=== PATIENT | male | born 1985 | race African-American/Black ===

== ENCOUNTER 2020-04-07 15:15 | Emergency (ER) | payer SELFPAY ==
[2020-04-07] MEDS ORDERED: AMOXICILLIN TR/POT CLAVULANATE 875-125 MG TAB PO ONE (15:53)
[2020-04-07] MEDS ORDERED: DIPH/PERTUSS(ACELL)/TETANUS VAC/PF 0.5 ML SYR (>=10YO) IM ONE (15:53)
[2020-04-07] MEDS ORDERED: IBUPROFEN 800 MG TABLET PO ONE (15:53)
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
--- NOTE | 2020-04-07 16:20 | RADIOLOGY REPORT (SQ) ---
EXAM DESCRIPTION: FINGER LEFT IMAGES COMPLETED DATE/TIME: 04/07/2020 4:07 pm REASON FOR STUDY: Probable open fracture of left index finger COMPARISON: None. NUMBER OF VIEWS: Three views. TECHNIQUE: AP, lateral, and oblique images acquired of the left second finger. LIMITATIONS: None. FINDINGS: MINERALIZATION: Normal. BONES: On the AP and oblique views there are osseous fragments that surround the tuft of the 2nd dist al phalanx - these osseous fragments could represent avulsed fracture fragments. There is no associa jordin dislocation. SOFT TISSUES: Soft tissue defect anterior and lateral to the tuft of the 2nd distal phalanx. OTHER: No other finding. IMPRESSION: 1. On the AP and oblique views there are osseous fragments that surround the tuft of the 2nd distal phalanx - these could represent fracture fragments. 2. Soft tissue defect anterior and lateral to the tuft of the 2nd distal phalanx. TECHNICAL DOCUMENTATION: JOB ID: [id number] 2010 [employer]- All Rights Reserved Reading location - IP/workstation name: [email or web address]
[2020-04-07] MEDS ORDERED: BUPIVACAINE HCL 0.5 % INJ/PF 30 ML SDV INJ ONE (18:00)
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
[2020-04-07 20:20] VITALS: BP 160/104
== END 2020-04-07 20:19 | disposition home or self-care (01) ==
LOC: ER 15:15
PROC: 0HQGXZZ Repair Left Hand Skin, External Approach (ICD-10-PCS; principal; 2020-04-07)
DX: Z23 Encounter for immunization (principal); S62.611A Displaced fracture of proximal phalanx of left index finger, initial encounter for closed fracture; S61.311A Laceration without foreign body of left index finger with damage to nail, initial encounter; W29.8XXA Contact with other powered hand tools and household machinery, initial encounter; M79.645 Pain in left finger(s); F17.200 Nicotine dependence, unspecified, uncomplicated
CPT/HCPCS: 99283; 90471; 73140; 90715; 12002; J3490 ×2